=== PATIENT | female | born 1980 | race African-American/Black ===

== ENCOUNTER 2017-07-31 10:44 | Emergency (ER) | payer OTHER ==
[2017-07-31 11:05] VITALS: BP 0/0; PULSE 87; BMI 23.4
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
== END 2017-07-31 12:55 | disposition home or self-care (01) ==
LOC: JER 10:44
DX: T59.811A Toxic effect of smoke, accidental (unintentional), initial encounter (principal); J68.8 Other respiratory conditions due to chemicals, gases, fumes and vapors; Y92.811 Bus as the place of occurrence of the external cause; Q89.9 Congenital malformation, unspecified; F79 Unspecified intellectual disabilities; Q76.3 Congenital scoliosis due to congenital bony malformation; G43.909 Migraine, unspecified, not intractable, without status migrainosus
CPT/HCPCS: 99282-25

== ENCOUNTER 2018-09-18 23:43 | Emergency (ER) | payer OTHER ==
--- NOTE | 2018-09-19 01:17 | PDOC ---
History of Present Illness - General Chief Complaint: Coffee Ground Emesis Stated Complaint: VOMITING Time Seen by Provider: 09/19/18 01:16 History Source: [facility] Records ([facility] patient) - History of Present Illness Initial Comments: 09/19/18 02:06 37 year old female with 1 episode of coffeee ground emesis at 10.30 pm. patient usually eats by mouth as [facility] record patient tolerated Dinner. denies abdominal pain, fever/ chills, cough, URI symptoms, rectal bleeding, dark stools. as per [place] records. patient is smiling nonverbal. 09/19/18 03:00 Past History - Past Medical History Allergies/Adverse Reactions: Allergies Allergy/AdvReac Type Severity Reaction Status Date / Time No Known Allergies Allergy Verified 07/31/17 11:06 Home Medications: Ambulatory Orders Unobtainable 07/31/17 Seizures: Yes - Suicide/Smoking/Psychosocial Hx Smoking History: Never smoked Review of Systems - Review of Systems Able to Perform ROS?: Yes Is the patient limited Guinean proficient: No Constitutional: No: Symptoms Reported, See HPI, Chills, Diaphoresis, Fever, Loss of Appetite, Malaise, Night Sweats, Weakness, Weight Stable, Unintentional Wgt. Loss, Unexplained wgt Loss, Other ABD/GI: Yes: Nausea, Vomiting. No: Symptoms Reported, See HPI, Abdominal Distended, Abd. Pain w/ defecation, Blood Streaked Bowels, Constipated, Diarrhea , Difficulty Swallowing, Poor Appetite, Poor Fluid Intake, Rectal Bleeding, Indigestion, Abdominal cramping, Tarry Stools, Other : No: Symptoms Reported, See HPI, Burning, Dysuria, Discharge, Frequency, Flank Pain, Hematuria, Incontinence, Pain, Urgency, Testicular Mass, Testicular Swelling, Lesions, Testicular Pain, Other Musculoskeletal: No: Symptoms Reported, See HPI, Back Pain, Gout, Joint Pain, Joint Swelling, Muscle Pain, Muscle Weakness, Neck Pain, Joint Stiffness, Other *Physical Exam - Vital Signs 09/19/18 02:21 Last Vital Signs Temp Pulse Resp BP Pulse Ox 97.8 F 73 19 138/93 99 09/19/18 01:15 09/19/18 01:15 09/19/18 01:15 09/19/18 01:15 09/19/18 01:15 - Physical Exam General Appearance: Yes: Appropriately Dressed Respiratory/Chest: positive: Lungs Clear, Normal Breath Sounds Cardiovascular: positive: Regular Rhythm, Regular Rate Gastrointestinal/Abdominal: positive: Normal Bowel Sounds, Soft, Other (no facial grimacing or agitation when abdomen is palpated. ). negative: Tender Rectal Exam: positive: normal exam Extremity: positive: Normal Capillary Refill, Normal Inspection, Normal Range of Motion Integumentary: positive: Normal Color, Dry, Warm Neurologic: positive: Alert (smiling) ED Treatment Course - LABORATORY CBC & Chemistry Diagram: 09/19/18 03:37 09/19/18 03:47 Medical Decision Making - Medical Decision Making 09/19/18 04:57 A: No bowel obstruction or inflammation. Negative for diverticulitis or colitis. Abundant stool in the colon. Gaseous stomach. The source for the coffee ground emesis is not apparent on this scan but the scan is limited due to lack of intravenous contrast and artifact from the metal spinal rods. No urinary tract obstruction. No free intraperitoneal air or free fluid. 3.5 cm left adnexal cyst. 1.7 cm right adnexal cyst. No obvious abnormalities of the liver, spleen, pancreas, gallbladder, or adrenal glands. 09/19/18 05:04 patient is alert awake. no vomiting in the ED. s/p pepcid and zofran. labs reviewed. gave report to EL Stark [phone] *DC/Admit/Observation/Transfer Diagnosis at time of Disposition: Vomiting alone Qualifiers: Vomiting type: unspecified Vomiting Intractability: non-intractable Qualified Code(s): R11.11 - Vomiting without nausea - Discharge Dispostion Disposition: ALF FACILITY - Referrals - Patient Instructions Printed Discharge Instructions: DI for Vomiting -- Adult Additional Instructions: please follow up with GI. Additional Instructions: * Please call your personal physician to report your Emergency Department visit and to report your progress, if any. * If there is no improvement in symptoms in 2 days call your physician. * Return to the Emergency Department for any worsening symptoms. - Post Discharge Activity
[2018-09-19] MEDS ORDERED: PANTOPRAZOLE SODIUM 40 MG VIAL IVPUSH ONE (01:37)
[2018-09-19] MEDS ORDERED: FAMOTIDINE 20 MG/50 ML IVPB 20 MG/50 ML MG IVPB ONE ×4 (01:45→04:35)
[2018-09-19] MEDS ORDERED: ONDANSETRON 4 MG/2 ML VIAL IVPB ONE (02:10)
[2018-09-19 02:20] VITALS: BP 138/93; PULSE 73; TEMP 97.8; BMI 15.0
[2018-09-19] MEDS ORDERED: ONDANSETRON 4 MG/2 ML VIAL ONE ×2 (03:42→04:34)
[2018-09-19] MEDS ORDERED: PANTOPRAZOLE SODIUM 40 MG VIAL ONE (03:42)
[2018-09-19 03:56] LABS: BASO % 0.1 % (0-2.0); EOS % 2.9 % (0-4.5); HEMATOCRIT 39.6 % (32.4-45.2); HEMOGLOBIN 13.3 GM/dL (10.7-15.3); LYMPH % 25.7 % (8-40); MCH 31.5 pg (25.7-33.7); MCHC 33.5 g/dl (32.0-36.0); MEAN CELL VOLUME 94.1 fl (80-96); MEAN PLT VOLUME 11.2 fl (7.5-11.1); NEUT % 58.3 % (42.8-82.8); PLATELET COUNT 170 K/MM3 (134-434); RBC 4.21 M/mm3 (3.60-5.2); WHITE BLOOD COUNT 7.4 K/mm3 (4.0-10.0)
[2018-09-19 04:16] LABS: ALBUMIN 3.4 g/dl (3.4-5.0); ALK PHOS 86 U/L (45-117); ANION GAP 5 MMOL/L (8-16); BILIRUBIN,TOTAL 0.2 mg/dL (0.2-1); BLOOD UREA NITROGEN 8 mg/dL (7-18); CALCIUM 8.3 mg/dL (8.5-10.1); CHLORIDE 106 mmol/L (98-107); CO2 28 mmol/L (21-32); CREATININE 0.4 mg/dL (0.55-1.3); GLUCOSE,RANDOM 79 mg/dL (74-106); POTASSIUM 4.3 mmol/L (3.5-5.1); SGOT/AST 8 U/L (15-37); SGPT/ALT 19 U/L (13-61); SODIUM 139 mmol/L (136-145)
== END 2018-09-19 05:49 ==
LOC: JER 23:43
PROC: 3E033GC Introduction of Other Therapeutic Substance into Peripheral Vein, Percutaneous Approach (ICD-10-PCS; principal; 2018-09-18)
PROC: 3E033GC Introduction of Other Therapeutic Substance into Peripheral Vein, Percutaneous Approach (ICD-10-PCS; 2018-09-18)
DX: Z77.22 Contact with and (suspected) exposure to environmental tobacco smoke (acute) (chronic) (principal); R11.10 Vomiting, unspecified; Q89.9 Congenital malformation, unspecified; M41.9 Scoliosis, unspecified; G40.909 Epilepsy, unspecified, not intractable, without status epilepticus
CPT/HCPCS: 36415; 74176-TC; 80053; 82272; 84703; 85025; 86850; 86900; 86901; 96361; 96374; 99282-25